=== PATIENT | female | born 1990 | race Hispanic/Latino ===

== ENCOUNTER 2017-12-13 13:37 | Emergency (ER) | payer OTHER ==
[2017-12-13] MEDS ORDERED: Acetaminophen 500 MG TAB ONE (14:36)
[2017-12-13 14:49] LABS: #Lymphocytes 0.8 thou/uL (1.20-3.40); #Monocytes 0.5 thou/uL (0.11-0.59); #Neutrophils 6.1 thou/uL (1.40-6.50); %Basophils 0.5 % (0.0-1.0); %Eosinophils 0.1 % (0.0-10.0); %Lymphocytes 10.3 % (21.0-51.0); %Monocytes 7.1 % (0.0-10.0); Hemoglobin 13.7 g/dL (12.0-16.0); Mean Corpuscular HGB CONC 35.1 g/dL (32.0-36.0); Mean Corpuscular Hemoglobin 31.5 pg (27.0-31.0); Mean Corpuscular Volume 89.8 fl (81.0-99.0); Mean Platelet Volume 7.8 fL (7.4-10.4); Platelet Count 250 thou/uL (130-400); RBC Distribution Width 11.4 % (11.5-14.5); Red Blood Cell (RBC) Count 4.35 mill/uL (4.20-5.40); White Blood Cell (WBC) Count 7.4 thou/uL (4.8-10.8)
[2017-12-13 15:02] LABS: BHCG - Serum Negative (NEGATIVE); Pregs Control Background? CLEAR/WHITE (CLR/WHITE); Pregs Control Bar Appear? YES (CONTROL BAR)
[2017-12-13 15:13] LABS: ALT (SGPT) 10 U/L (8-55); AST (SGOT) 12 U/L (5-34); Albumin 4.4 g/dL (3.5-5.0); Alkaline Phosphatase 63 U/L (40-150); Anion Gap 9 mmol/L (10-20); BUN (Urea Nitrogen) 10 mg/dL (7.0-18.7); Bilirubin, Total 1.1 mg/dL (0.2-1.2); Calc. Creatinine Clearance 0 mL/min (70-130); Calcium 9.1 mg/dL (7.8-10.44); Carbon Dioxide 25 mmol/L (22-29); Chloride 103 mmol/L (98-107); Estimated GFR-MDRD Greater than 90; Globulin 3.1 g/dL (2.4-3.5); Glucose 91 mg/dL (70-105); Potassium 3.4 mmol/L (3.5-5.1); Protein, Total 7.5 g/dL (6.0-8.3); Sodium 134 mmol/L (136-145)
[2017-12-13 15:16] LABS: Bilirubin Small (Negative); Blood, Urine Trace (Negative); Clarity TURBID (Clear); Glucose, Urine (Dipstick) Negative (Negative); Leukocyte Trace (Negative); Nitrite Negative (Negative); Protein, Urine (Dipstick) 30 mg/dL (Neg-Trace); Specific Gravity, Urine 1.034 (1.002-1.036); Urobilinogen 0.2 mg/dL (0.2-1.0); pH, Urine 5.5 (5.0-9.0)
[2017-12-13 15:18] LABS: Bacteria/HPF 1+ HPF (None Seen); Squamous Epithelial 21-50 HPF (0-3)
[2017-12-13 15:30] LABS: Other Casts/LPF None Seen LPF (0-3 Hyaline); RBC/HPF 0-3 HPF (0-3)
[2017-12-13] MEDS ORDERED: Metoclopramide HCl 10 MG/2 ML VIAL ONE (15:33)
[2017-12-13] MEDS ORDERED: diphenhydrAMINE 50 MG/ML VIAL ONE (15:33)
[2017-12-13] MEDS ORDERED: Ketorolac Tromethamine 30 MG/ML VIAL ONE (15:33)
== END 2017-12-13 17:19 | disposition home or self-care (01) ==
LOC: ERS 13:37
DX: G43.909 Migraine, unspecified, not intractable, without status migrainosus (principal); B34.9 Viral infection, unspecified
CPT/HCPCS: 36415; 80053; 81003; 81015; 84703; 85025; 87086; 93005; 96365; 96375; J1200; J1885; J2765

== ENCOUNTER 2017-12-15 18:59 | Emergency (ER) | payer OTHER ==
[2017-12-15] MEDS ORDERED: Ondansetron ODT 8 MG TAB ONE (19:35)
[2017-12-15 19:50] LABS: Mean Corpuscular HGB CONC 35.3 g/dL (32.0-36.0); Mean Corpuscular Volume 87.7 fl (81.0-99.0); Mean Platelet Volume 7.5 fL (7.4-10.4); Platelet Count 205 thou/uL (130-400); RBC Distribution Width 11.3 % (11.5-14.5); Red Blood Cell (RBC) Count 4.52 mill/uL (4.20-5.40); White Blood Cell (WBC) Count 7.5 thou/uL (4.8-10.8)
[2017-12-15 20:05] LABS: Band 35 % (5-11); Eosinophils 1 % (0-10); Lymphocytes 9 % (21-51); MDiff Complete? YES; Monocytes 7 % (0-10); Neutrophil 47 % (42-75); PLT Morphology Comment Appears Adequate; RBC Morphology Normal; Vacuoles SLIGHT
[2017-12-15 20:12] LABS: ALT (SGPT) 13 U/L (8-55); AST (SGOT) 21 U/L (5-34); Albumin 4.4 g/dL (3.5-5.0); Alkaline Phosphatase 69 U/L (40-150); Anion Gap 17 mmol/L (10-20); BUN (Urea Nitrogen) 9 mg/dL (7.0-18.7); Bilirubin, Total 0.5 mg/dL (0.2-1.2); Calc. Creatinine Clearance 0 mL/min (70-130); Calcium 9.5 mg/dL (7.8-10.44); Carbon Dioxide 20 mmol/L (22-29); Chloride 100 mmol/L (98-107); Estimated GFR-MDRD Greater than 90; Globulin 3.2 g/dL (2.4-3.5); Glucose 117 mg/dL (70-105); Lipase 55 U/L (8-78); Potassium 3.4 mmol/L (3.5-5.1); Protein, Total 7.6 g/dL (6.0-8.3); Sodium 134 mmol/L (136-145)
== END 2017-12-15 21:50 | disposition home or self-care (01) ==
LOC: ERS 18:59
DX: K52.9 Noninfective gastroenteritis and colitis, unspecified (principal)
CPT/HCPCS: 80053; 83690; 85025; 96360; 96361; 96372

== ENCOUNTER 2021-06-09 07:41 | Day surgery (SDC) | payer OTHER ==
[2021-06-08 15:30] VITALS: BMI 21.9
[2021-06-09] MEDS ORDERED: AFRIN NASAL MIST 15 ML BOT ONE ×3 (09:14→09:50)
[2021-06-09] MEDS ORDERED: EPINEPHrine 1 MG/ML AMP ONE (09:50)
[2021-06-09] MEDS ORDERED: Lidocaine 1% w/Epinephrine 1:100K 20 ML VIAL ONE (09:50)
[2021-06-09] MEDS ORDERED: Bupivacaine 0.25% HCL 30 ML VIAL ONE (09:50)
[2021-06-09] MEDS ORDERED: Fentanyl 100 MCG/2 ML VIAL ONE ×2 (09:51→11:29)
[2021-06-09] MEDS ORDERED: methylPREDNISolone Acetate 40 mg/ml Vial ONE (09:54)
[2021-06-09] MEDS ORDERED: Midazolam HCl 2 mg/2 ml Vial ONE (10:02)
[2021-06-09] MEDS ORDERED: Ondansetron PF 4 MG/2 ML Vial ONE (10:11)
[2021-06-09] MEDS ORDERED: Lidocaine 1% PF 5 ML VIAL ONE (10:11)
[2021-06-09] MEDS ORDERED: PHENYLEPHRINE-NS 100 MCG/ML 10 ML SYRINGE ONE (10:11)
[2021-06-09] MEDS ORDERED: Glycopyrrolate 0.2 MG/ML 5 ML SYRINGE ONE (10:11)
[2021-06-09] MEDS ORDERED: Rocuronium Bromide 10 MG/ML (10ML VIAL) ONE (10:11)
[2021-06-09] MEDS ORDERED: PROPOFOL 200 MG/20 ML VIAL ONE (10:11)
[2021-06-09] MEDS ORDERED: Dexamethasone 20 MG/5 ML VIAL ONE (10:11)
[2021-06-09] MEDS ORDERED: ePHEDrine 50 MG/ML VIAL ONE (10:11)
[2021-06-09] MEDS ORDERED: Morphine 4 MG/ML VIAL ONE (12:48)
[2021-06-09] MEDS ORDERED: Promethazine HCl 25 MG/ML VIAL ONE (12:48)
== END 2021-06-09 13:30 | disposition home or self-care (01) ==
LOC: SDC 07:41
PROVIDERS: ATTEND Specialist
PROC: 09TL8ZZ Resection of Nasal Turbinate, Via Natural or Artificial Opening Endoscopic (ICD-10-PCS; principal; 2021-06-09)
PROC: 0NSBXZZ Reposition Nasal Bone, External Approach (ICD-10-PCS; principal; 2021-06-09)
PROC: 09SM0ZZ Reposition Nasal Septum, Open Approach (ICD-10-PCS; principal; 2021-06-09)
DX: S02.2XXA Fracture of nasal bones, initial encounter for closed fracture (principal); J34.2 Deviated nasal septum; J34.3 Hypertrophy of nasal turbinates; Z91.013 Allergy to seafood; Z91.041 Radiographic dye allergy status
CPT/HCPCS: J0171; J1100; J2250; J2270; J2405; J2550; J2704; J2920; J3010; J3490; S0020

== ENCOUNTER 2024-07-07 21:11 | Emergency (ER) | payer BC, OTHER ==
[2024-07-07] MEDS ORDERED: EPINEPHrine 1 MG/ML VIAL ONE (21:32)
[2024-07-07] MEDS ORDERED: methylPREDNISolone Sod Succ/PF 125 MG/2 ML VIAL ONE (21:32)
[2024-07-07] MEDS ORDERED: Famotidine/PF 20 mg/2ml Vial ONE (21:32)
== END 2024-07-08 00:19 | disposition home or self-care (01) ==
LOC: ERS 21:11
DX: T78.2XXA Anaphylactic shock, unspecified, initial encounter (principal)
CPT/HCPCS: 96372; 96374; 96375; J0171; J2919; J3490

== ENCOUNTER 2025-05-13 12:28 | Emergency (ER) | payer BC ==
[2025-05-13] MEDS ORDERED: Famotidine 20 MG TAB ONE (12:35)
[2025-05-13] MEDS ORDERED: diphenhydrAMINE 25 MG CAP ONE (12:35)
[2025-05-13] MEDS ORDERED: Dexamethasone 10 MG/ML VIAL ONE (12:35)
== END 2025-05-13 15:20 | disposition home or self-care (01) ==
LOC: ERS 12:28
DX: L50.9 Urticaria, unspecified (principal)
CPT/HCPCS: 99282; J1100